=== PATIENT | female | born 1980 | race Caucasian/White ===

== ENCOUNTER 2018-01-25 07:59 | Inpatient (IN) | payer MEDICARE, OTHER ==
[2018-01-25] MEDS ORDERED: LIDOCAINE HCL/PF 2% 100 MG/5 ML VIAL IJ ONE (08:48)
[2018-01-25] MEDS ORDERED: PROPOFOL 200 MG/20 ML VIAL IV ONE (08:48)
[2018-01-25] MEDS ORDERED: FENTANYL 250MCG/5ML VIAL ONE (08:48)
[2018-01-25] MEDS ORDERED: ACETAMINOPHEN 1,000 MG/100 ML INJ IV ONE (08:48)
[2018-01-25] MEDS ORDERED: SODIUM CHLORIDE IRRIG SOLUTION 3,000 ML IRRIG.SOLN IR ONE (08:48)
[2018-01-25] MEDS ORDERED: SEVOFLURANE 250 ML LIQUID IH ONE (08:48)
[2018-01-25] MEDS ORDERED: ROCURONIUM BROMIDE 10 MG/ML 5ML VIAL ONE (08:48)
[2018-01-25] MEDS ORDERED: LACTATED RINGERS 1,000 ML IV.SOLN IV ONE ×2 (08:48)
[2018-01-25] MEDS ORDERED: BUPIVACAINE HCL 0.25%/EPI. PF 30 ML VIAL IJ ONE (08:48)
[2018-01-25] MEDS ORDERED: FAMOTIDINE/PF 20 MG/2 ML VIAL ONE ×2 (08:48→09:06)
[2018-01-25] MEDS ORDERED: Lidocaine 1% PF 30ml 10 MG/ML VIAL ONE (08:48)
[2018-01-25] MEDS ORDERED: HYDROmorphone HCL/PF 1 MG/ML DISP.SYRIN ONE ×2 (08:48→13:03)
[2018-01-25] MEDS ORDERED: SUGAMMADEX 200 mg/2mL 200 MG/2 ML VIAL IV ONE (08:48)
[2018-01-25] MEDS ORDERED: MIDAZOLAM HCL 2 MG/2 ML VIAL ONE (08:48)
[2018-01-25] MEDS ORDERED: CLINDAMYCIN PHOSPHATE 900 MG/6 ML VIAL ONE (08:48)
[2018-01-25] MEDS ORDERED: ONDANSETRON HCL/PF 4 MG/ 2ML VIAL ONE (08:48)
[2018-01-25] MEDS ORDERED: DEXAMETHASONE SOD PHOS 4 MG/ML VIAL ONE (08:48)
[2018-01-25] MEDS ORDERED: SCOPOLAMINE HYDROBROMIDE 1.5MG/72HR PATCH TD ONE ×2 (08:48→09:06)
[2018-01-25] MEDS ORDERED: ePHEDrine SULFATE 50 MG/1 ML IVP ONE (08:48)
[2018-01-25] MEDS ORDERED: LACTATED RINGERS 1,000 ML IV ONE ×2 (09:06→11:25)
[2018-01-25] MEDS ORDERED: ENOXAPARIN SODIUM 40 MG/0.4 ML DISP.SYRIN SQ ONE (10:32)
--- NOTE | 2018-01-25 14:07 | History and Physical Report ---
History of Present Illnes - History of Present Illness Reason for Visit: S/p surgery History of Present Illness: Patient has had failed attempts at weight loss with different diets and exercise. She underwent gastric sleeve today. No concerns during surgery. Patient feeling pretty good. Thirsty. - Past Medical History Cardiac: HTN Pulmonary: Asthma (PFT's 08/23 - mild restrictive) ROUNDER HAND: Migraine Gastrointestinal: GERD Psych: Anxiety, Depression, Other (ADHD) Musculoskeletal: Chronic low back pain Endocrine: obesity (Morbid) - Past Surgical History Past Surgical History: (x2) - Past Family History Mother Family History: Other (allergies/mild asthma) Father Family History: Hyperlipidemia - Past Social History Smoke: No Alcohol: None Drugs: None Lives: Alone - Health Maintenance Health Maintenance: Pap Smear Influenza Vaccine: Current for this Influenza Season Pneumonia Vaccine: No Resuscitation Status: Full Review of Systems - Review of Systems Constitutional: negative: Fever, Weakness Eyes: negative: pain ENT: negative: Ear Pain, Nose Discharge Respiratory: negative: Cough, Shortness of Breath Cardiovascular: negative: Chest Pain Gastrointestinal: Abdominal Pain. negative: Nausea, Vomiting Genitourinary: negative: Dysuria Musculoskeletal: negative: Neck Pain Skin: negative: Rash Neurological: negative: Weakness - Medications/Allergies Home Medications: Home Medications Alprazolam [Xanax] 2 mg PO [id number] 01/25/18 Cyclobenzaprine HCl 10 mg PO [id number] 01/25/18 Dextroamphetamine/Amphetamine [Adderall 10 mg Tablet] 10 mg PO [id number] 01/25/18 Duloxetine HCl 90 mg PO [id number] 01/25/18 Eszopiclone 3 mg PO [id number] 01/25/18 Promethazine HCl [Phenergan] 25 g PO [id number] PRN 01/25/18 Propranolol HCl [Inderal] 60 mg PO [id number] 01/25/18 Ranitidine HCl 300 mg PO [id number] 01/25/18 Sumatriptan Succinate [Imitrex] 50 mg PO QDAY PRN 01/25/18 Vortioxetine Hydrobromide [Brintellix] 10 mg PO [id number] 01/25/18 Exam - Exam General: Alert, Oriented to Person, Oriented to Place, Oriented to Time, Cooperative, No acute distress HEENT: Atraumatic, PERRLA, EOMI, Mouth Mucous membr. moist/[place] Neck: Normal Range of Motion Lungs: Clear to auscultation, Normal air movement, Speaks full Sentences Cardiovascular: Regular rate Abdomen: Normal bowel sounds, Soft, Other (5 bandages C/D/I) Integumentary: Normal Extremities: No edema Neurological: Normal gait Psych/Mental Status: Mental status NL, Mood NL, Appropriate Affect Assessment/Plan - Assessment/Plan (1) S/P gastric bypass Status: Acute Current Visit: Yes Plan: Admit for standard post op care. IV hydration and pain control. Advance diet as tolerated. Lovenox for DVT prevention. Early and ambulation and IS frequently. Patient has f/u 1-2-19 at 11:00 in [place]. (2) HTN (hypertension) Status: Chronic Current Visit: Yes Qualifiers: Hypertension type: essential hypertension Qualified Code(s): I10 - Essential (primary) hypertension Plan: Watch BP closely. (3) Asthma Status: Chronic Current Visit: No Qualifiers: Asthma severity: mild Asthma persistence: intermittent Asthma compl ication type: uncomplicated Qualified Code(s): J45.20 - Mild intermittent asthma, uncomplicated Plan: Stable. Watch. (4) Anxiety Status: Chronic Current Visit: No Plan: Continue current medications. Patient may need to take her own meds if nonformulary to provide interruption of care. (5) Chronic back pain Status: Chronic Current Visit: No Qualifiers: Back pain location: low back pain Back pain laterality: midline Sciatica presence: without sciatica Qualified Code(s): M54.5 - Low back pain; G89.29 - Other chronic pain Plan: Continue current meds. (6) GERD (gastroesophageal reflux disease) Status: Chronic Current Visit: No Qualifiers: Esophagitis presence: without esophagitis Qualified Code(s): K21.9 - Gastro-esophageal reflux disease without esophagitis Plan: Continue zantac but will also give IV H2 mario per protocol. VTE Assessment - RISK FACTOR SCORE VTE RISK FACTOR SCORES: MAJOR SURGERY/ANESTHESIA TIME > 1 HOUR - RISK VTE MODERATE RISK: SCORE OF 2 (RISK PROXIMAL DVT 2-4%) PROPHYAXIS NEEDED
[2018-01-25] MEDS ORDERED: HYDROCODON ACETAMIN PO PRN (14:20)
[2018-01-25] MEDS ORDERED: ONDANSETRON HCL/PF 4 MG/ 2ML VIAL IVP PRN (14:20)
[2018-01-25] MEDS ORDERED: MORPHINE SULFATE 4 MG/ML PREFILLED SYR IVP PRN (14:20)
[2018-01-25] MEDS ORDERED: LEVALBUTEROL HCL 1.25 MG/3 ML AMPUL.NEB NEB PRN (14:20)
[2018-01-25] MEDS ORDERED: PROMETHAZINE HCL 25 MG in 0.9 % SODIUM CHLORIDE 50 ML IV PRN (14:20)
[2018-01-25] MEDS: 0.9 % SODIUM CHLORIDE 1,000 ML IV SCH ×2 (14:30→23:33)
[2018-01-25] MEDS ORDERED: SUMATRIPTAN SUCCINATE 50 MG PO PRN (14:31)
[2018-01-25] MEDS ORDERED: SUMAtriptan SUCCINATE 25 MG TABLET PO PRN (15:01)
[2018-01-25 17:24] VITALS: BMI 44.1
[2018-01-25] MEDS: KETOROLAC TROMETHAMINE 30 MG/1ML VIAL IVP PRN (17:36)
[2018-01-25] MEDS: CLINDAMYCIN PHOSPHATE/D5W 600 MG/50 ML PIGGYBACK IV SCH (18:57)
[2018-01-25] MEDS: CYCLOBENZAPRINE HCL 5 MG TABLET PO SCH (20:59)
[2018-01-25] MEDS: ALPRAZOLAM 0.5 MG TABLET PO SCH (20:59)
[2018-01-25] MEDS ORDERED: ALPRAZOLAM 2 MG PO SCH (21:00)
[2018-01-25] MEDS ORDERED: CYCLOBENZAPRINE HCL 10 MG PO SCH (21:00)
[2018-01-25] MEDS: FAMOTIDINE/PF 20 MG/2 ML VIAL IVP SCH (21:00)
[2018-01-25] MEDS: ESZOPICLONE 3 MG PO SCH (21:57)
[2018-01-26] MEDS: HYDROcodone /APAP 5/325 1 EACH TABLET PO PRN ×2 (02:43→22:44)
[2018-01-26] MEDS: CLINDAMYCIN PHOSPHATE/D5W 600 MG/50 ML PIGGYBACK IV SCH (03:30)
[2018-01-26] MEDS: 0.9 % SODIUM CHLORIDE 1,000 ML IV SCH ×2 (06:11→11:41)
--- NOTE | 2018-01-26 07:47 | Inpatient Progress Note ---
Subjective - Required Recertification Statement I anticipate X number of days because-include discharge plan: 1 - Review of Systems Subjective: Patient doing ok. Pain is doing well. Tolerating clear liquids. Still with some gas. Objective - Exam Vitals and I&O: Vital Signs Temp 98.6 F 01/26/18 06:00 Pulse 102 H 01/26/18 06:00 Resp 18 01/26/18 06:00 BP 117/73 01/26/18 06:00 Pulse Ox 95 01/26/18 06:00 Intake & Output 01/25/18 01/25/18 01/26/18 11:59 23:59 11:59 Intake Total 2990 1030 Output Total 950 900 Balance 2040 130 Weight 113 kg Intake: IV 2100 900 Right Forearm 2100 900 Oral 890 30 Lipid 100 Output: Urine 950 900 Other: Voiding Method Toilet Toilet # Voids 2 General: Alert, Oriented to Person, Oriented to Place, Oriented to Time, Cooperative, No acute distress Lungs: Clear to auscultation, Normal air movement, Speaks full Sentences Abdomen: Normal bowel sounds, Soft. No: No tenderness (Mild. No rebound) Assessment/Plan - Assessment/Plan (1) S/P gastric bypass Status: Acute Current Visit: Yes Plan: Patient doing well. Continue to encourage her to ambulate. Encourage IS. Advance diet as tolerated. (2) HTN (hypertension) Status: Chronic Current Visit: Yes Qualifiers: Hypertension type: essential hypertension Qualified Code(s): I10 - Essential (primary) hypertension Assessment: Looks great here. Patient takes propranolol for migraine prevention. Therefore we have continued that. (3) Asthma Status: Chronic Current Visit: No Qualifiers: Asthma severity: mild Asthma persistence: intermittent Asthma complication type: uncomplicated Qualified Code(s): J45.20 - Mild intermittent asthma, uncomplicated (4) Anxiety Status: Chronic Current Visit: No (5) Chronic back pain Status: Chronic Current Visit: No Qualifiers: Back pain location: low back pain Back pain laterality: midline Sciatica presence: without sciatica Qualified Code(s): M54.5 - Low back pain; G89.29 - Other chronic pain (6) GERD (gastroesophageal reflux disease) Status: Chronic Current Visit: No Qualifiers: Esophagitis presence: without esophagitis Qualified Code(s): K21.9 - Gastro-esophageal reflux disease without esophagitis
[2018-01-26] MEDS: PROPRANOLOL HCL 20 MG TABLET PO SCH (08:41)
[2018-01-26] MEDS: FAMOTIDINE/PF 20 MG/2 ML VIAL IVP SCH ×2 (08:41→22:44)
[2018-01-26] MEDS: DULoxetine HCL 30 MG CAPSULE.DR PO SCH (08:41)
[2018-01-26] MEDS: RANITIDINE HCL 300 MG PO SCH (08:42)
[2018-01-26] MEDS: VORTIOXETINE HYDROBROMIDE 10 MG PO SCH (08:42)
[2018-01-26] MEDS ORDERED: DEXTROAMPHETAMINE PO SCH (09:00)
[2018-01-26] MEDS ORDERED: PROPRANOLOL HCL 60 MG PO SCH (09:00)
[2018-01-26] MEDS ORDERED: AMPHETAMINE PO SCH (09:00)
[2018-01-26] MEDS ORDERED: ENOXAPARIN SODIUM 40 MG/0.4 ML DISP.SYRIN SQ SCH (11:00)
[2018-01-26] MEDS: KETOROLAC TROMETHAMINE 30 MG/1ML VIAL IVP PRN (17:03)
[2018-01-26] MEDS: ALPRAZOLAM 0.5 MG TABLET PO SCH (22:44)
[2018-01-26] MEDS: ESZOPICLONE 3 MG PO SCH (22:44)
[2018-01-26] MEDS: CYCLOBENZAPRINE HCL 5 MG TABLET PO SCH (22:44)
[2018-01-27] MEDS ORDERED: oxyCODONE/ACETAMINOPHEN 5/325 TABLET PO PRN (01:36)
--- NOTE | 2018-01-27 08:13 | Discharge Summary ---
Discharge Summary - Discharge Sumary History of Present Illness: Patient has had failed attempts at weight loss with different diets and exercise. She underwent gastric sleeve today. No concerns during surgery. Patient feeling pretty good. Thirsty. Home Medications: Ambulatory Orders Medication Instructions Recorded Alprazolam [Xanax] 2 mg PO [id number] 01/25/18 Cyclobenzaprine HCl 10 mg PO [id number] 01/25/18 Dextroamphetamine/Amphetamine 10 mg PO [id number] 01/25/18 [Adderall 10 mg Tablet] Duloxetine HCl 90 mg PO [id number] 01/25/18 Eszopiclone 3 mg PO [id number] 01/25/18 Promethazine HCl [Phenergan] 25 g PO [id number] PRN 01/25/18 Propranolol HCl [Inderal] 60 mg PO [id number] 01/25/18 Ranitidine HCl 300 mg PO [id number] 01/25/18 Sumatriptan Succinate [Imitrex] 50 mg PO QDAY PRN 01/25/18 Vortioxetine Hydrobromide 10 mg PO [id number] 01/25/18 [Brintellix] Consultations this Visit: None Procedures this Visit: Other (S/P gastric sleeve) Allergies/Adverse Reactions: Allergies Allergy/AdvReac Type Severity Reaction Status Date / Time calcium [From DHEA] Allergy Intermediate Rash Verified 01/25/18 14:40 metoclopramide Allergy Mild Verified 01/25/18 14:39 calcium carbonate [From DHEA] Allergy Verified 01/25/18 14:40 cefazolin [From Ancef] Allergy Verified 01/25/18 14:41 prasterone (DHEA) [From DHEA] Allergy Verified 01/25/18 14:40 Patient Problems: Current Active Problems Problem Status Onset S/P gastric bypass Acute HTN (hypertension) Chronic Discharge Summary: Patient is a 37-year-old white female who did a great job s/p gastric sleeve. She has been up walking in the halls, using incentive spirometer, and wearing SCDs while in bed. Incision sites are without redness/erythema- she is tolerating oral meds/fluids without difficulty. Patient will monitor blood pressures and keep follow appointment. Hospital Course: Patient transitioned from IV to PO fluids and meds without difficulty. She has been up ambulating in the hallways. She has been using incentive spirometer - Final Diagnosis (1) S/P gastric bypass Problems: Incision sites without redness/erythema, legs are without pain/tenderness- frequent ambulation and SCDs, Using incentive spirometer frequently- tolerating PO meds Right or Left: Right (2) HTN (hypertension) Problems: Stable on home meds (3) Asthma Problems: stable Right or Left: Right (4) Anxiety Problems: Stable on home meds Right or Left: Right (5) Chronic back pain Problems: Stable Right or Left: Right (6) GERD (gastroesophageal reflux disease) Problems: Stable Right or Left: Right
[2018-01-27] MEDS: FAMOTIDINE/PF 20 MG/2 ML VIAL IVP SCH (08:39)
[2018-01-27] MEDS: VORTIOXETINE HYDROBROMIDE 10 MG PO SCH (08:42)
[2018-01-27] MEDS: RANITIDINE HCL 300 MG PO SCH (08:42)
[2018-01-27] MEDS: PROPRANOLOL HCL 20 MG TABLET PO SCH (08:42)
[2018-01-27] MEDS: DULoxetine HCL 30 MG CAPSULE.DR PO SCH (08:43)
[2018-01-27] MEDS: HYDROcodone /APAP 5/325 1 EACH TABLET PO PRN (08:48)
[2018-01-27 09:28] VITALS: BP 130/91
== END 2018-01-27 09:55 | disposition home or self-care (01) | DRG 621 ==
LOC: OPSURG 07:59 → SOUTH 13:42
PROVIDERS: ADMIT Nurse Practitioner Family; ATTEND Nurse Practitioner Family
DX: E66.01 Morbid (severe) obesity due to excess calories (principal); Z68.42 Body mass index [BMI] 45.0-49.9, adult
CPT/HCPCS: 43235; 81025; 99231; 99232; 99238; J1100; J1170; J1650; J1885; J2001; J2250; J2405; J2704; S0028; 43775; A9270-GY; J7030; J7120; S1016